=== PATIENT | female | born 1960 | race African-American/Black ===

== ENCOUNTER 2017-07-08 12:28 | Emergency (ER) | payer OTHER ==
--- NOTE | 2017-07-08 13:09 | ER Document Report ---
ED GI/ - General Chief Complaint: Urinary Problem Stated Complaint: PAINFUL URINATION Time Seen by Provider: 07/08/17 12:56 Mode of Arrival: Ambulatory Information source: Patient Notes: 56-year-old female presents to ED for urinary burning and frequency and pelvic pain for the last week. She states she thinks she has a UTI and a yeast infection. She states she is postmenopausal. She states she has spoken with her primary doctor and they are sending a referral for REGIONAL PRODUCTION MANAGER. TRAVEL OUTSIDE OF THE [place] IN LAST 30 DAYS: No - HPI Patient complains to provider of: Pelvic pain, Vaginal discharge, Vaginal pain, Other - Burning with urination Onset: Last week Timing/Duration: Persistent Quality of pain: Achy, Dull, Sharp Severity at maximum: Severe Severity in ED: Severe Pain Level: 5 Location: Suprapubic, Pelvis, Vaginal Vaginal bleeding (Compared to normal period): None Menstrual period history: Post-menopausal Associated symptoms: Urinary frequency, Urinary urgency, Vaginal discharge Exacerbated by: Movement, Walking, Other - Urination Relieved by: Denies Similar symptoms previously: Yes Recently seen / treated by doctor: Yes - Related Data Allergies/Adverse Reactions: nitroglycerin [Nitroglycerin] Allergy (Verified 07/08/17 12:28) low blood pressure Sulfa (Sulfonamide Antibiotics) Allergy (Verified 07/08/17 12:28) rash Past Medical History - General Information source: Patient - Social History Smoking Status: Former Smoker Cigarette use (# per day): No Chew tobacco use (# tins/day): No Smoking Education Provided: No Frequency of alcohol use: None Drug Abuse: None Occupation: None Lives with: Family Family History: Arthritis, CAD, DM, Hyperlipidemia, Hypertension, Malignancy. denies: COPD, CVA, Thyroid Disfunction Patient has suicidal ideation: No Patient has homicidal ideation: No - Past Medical History Cardiac Medical History: Reports: Hx Hypertension Pulmonary Medical History: Reports: None EENT Medical History: Reports: None Neurological Medical History: Reports: None Endocrine Medical History: Reports: Hx Diabetes Mellitus Type 2 Renal/ Medical History: Reports: None Malignancy Medical History: Reports: None GI Medical History: Reports: None Musculoskeltal Medical History: Reports Hx Arthritis, Reports Hx Musculoskeletal Trauma Skin Medical History: Reports None Psychiatric Medical History: Reports: None Traumatic Medical History: Reports: None Infectious Medical History: Reports: None Past Surgical History: Reports: Hx Cholecystectomy, Hx Orthopedic Surgery - right knee, Hx Tubal Ligation - Immunizations Hx Diphtheria, Pertussis, Tetanus Vaccination: Yes Review of Systems - Review of Systems Constitutional: No symptoms reported EENT: No symptoms reported Cardiovascular: No symptoms reported Respiratory: No symptoms reported Gastrointestinal: No symptoms reported Genitourinary: Burning, Frequency Female Genitourinary: Vaginal discharge, Other - Pelvic pain Musculoskeletal: No symptoms reported Skin: No symptoms reported Hematologic/Lymphatic: No symptoms reported Neurological/Psychological: No symptoms reported -: Yes All other systems reviewed and negative Physical Exam - Vital signs Vitals: Temp Pulse Resp BP Pulse Ox 98.2 F 76 18 151/67 H 98 07/08/17 12:37 07/08/17 12:37 07/08/17 12:37 07/08/17 12:37 07/08/17 12:37 Interpretation: Normal - General General appearance: Appears well, Alert - HEENT Head: Normocephalic, Atraumatic Eyes: Normal Pupils: PERRL - Respiratory Respiratory status: No respiratory distress Chest status: Nontender Breath sounds: Normal Chest palpation: Normal - Cardiovascular Rhythm: Regular Heart sounds: Normal auscultation Murmur: No - Abdominal Inspection: Normal Distension: No distension Bowel sounds: Normal Tenderness: Tender - Pelvic Organomegaly: No organomegaly - Genitourinary Speculum exam: Vaginal discharge Vaginal bleeding: None Bimanuel exam: Adnexal tenderness - Back Back: Normal, Nontender - Extremities General upper extremity: Normal inspection, Nontender, Normal color, Normal ROM , Normal temperature General lower extremity: Normal inspection, Nontender, Normal color, Normal ROM , Normal temperature, Normal weight bearing. No: Ann's sign - Neurological Neuro grossly intact: Yes Cognition: Normal Orientation: AAOx4 Rosa Coma Scale Eye Opening: Spontaneous [place] Coma Scale Verbal: Oriented Rosa Coma Scale Motor: Obeys Commands Rosa Coma Scale Total: 15 Speech: Normal Motor strength normal: LUE, RUE, LLE, RLE Sensory: Normal - Psychological Associated symptoms: Normal affect, Normal mood - Skin Skin Temperature: Warm Skin Moisture: Dry Skin Color: Normal Course - Re-evaluation Re-evalutation: 07/08/17 13:08 Urine wet mount GC and chlamydia and Doppler all ordered the patient's pelvic pain is been going on and off for over a week. Patient states she has been to her primary doctor and they have put in a referral for [employer] PRODUCTION MANAGER consult. 07/08/17 15:47 Lab results and ultrasound results discussed with patient. [facility] satellite installation technician notified. She states she is a low comes the patient will need to call the office on Monday or Monday if his office is not open on Monday. She states she was not sure whether was open or not. Will discharge patient home to follow-up with REGIONAL PRODUCTION MANAGER and I will give her a copy of the lab and ultrasound reports. - Vital Signs Vital signs: Temp Pulse Resp BP Pulse Ox 98.2 F 73 18 137/84 H 98 07/08/17 12:37 07/08/17 16:03 07/08/17 16:03 07/08/17 16:03 07/08/17 16:03 - Laboratory Laboratory results interpreted by me: 07/08/17 13:03 Urine Protein 30 H Urine Glucose (UA) 50 H Urine Blood MODERATE H - Diagnostic Test Radiology reviewed: Image reviewed, Reports reviewed Discharge - Discharge Clinical Impression: Pelvic pain in female, Bacterial vaginitis, Endometrial thickening on ultra sound Fibroid uterus Qualifiers: Uterine leiomyoma location: unspecified location Qualified Code(s): D25.9 - Leiomyoma of uterus, unspecified HTN (hypertension) Qualifiers: Hypertension type: unspecified Qualified Code(s): I10 - Essential (primary) hypertension Condition: Stable Disposition: HOME, SELF-CARE Additional Instructions: PELVIC PAIN: There are many causes of pain in the pelvic area. The cause could be the tubes, ovaries, uterus, intestines, appendix, pelvic muscles and connective tissue, or the urinary tract. The cause of your pelvic pain is not clear. However, it seems safe to treat you outside the hospital. If the pain sounds like a temporary problem, we sometimes wait to see if it goes away. Other patients may need additional tests, such as pelvic ultrasound or cultures. Conditions may change. Call us or come back for reexamination if any problems occur, such as: (1) Pain that becomes more severe, steady, or becomes concentrated in one specific area. Also, pain that is more severe with movement or coughing. (2) Vomiting that persists or becomes more frequent. (3) Blood in the vomitus, urine, or bowel movements. Blood in the stool may have a tarry or black appearance. (4) Shaking chills or fever greater than 100 degrees. (5) The abdomen becomes more distended or swollen. (6) Bowel movements cease. (7) Heavy vaginal bleeding. Vaginosis, Bacterial Your exam shows you have bacterial vaginosis. This condition is due to an overgrowth of bacteria in the vagina. Symptoms may include vaginal itching or pain, a smelly discharge, and sometimes burning with urination. Normally this is not transmitted by sexual contact. Vaginosis can be treated with oral or topical antibiotics. Metronidazole ( Flagyl) pills are usually effective. Topical vaginal creams include Cleocin and Metro-Gel. You should avoid sexual contact until your symptoms are all better. Call the doctor if you develop pelvic pain, fever, or problems with urination, or if you don't improve as expected. METRONIDAZOLE: Metronidazole (Flagyl) has been prescribed. This medication is used to kill a type of bacteria called anaerobes, and protozoan parasites such as trichomonas and Giardia. Flagyl often causes a metallic taste in the mouth and mild nausea. Do not use alcohol in any form with Flagyl (including alcohol in medication elixirs). Flagyl interacts with alcohol to cause flushing, palpitations, headache, stomach cramps, and vomiting. Do not use Flagyl if you are taking Antabuse (disulfiram). Call the doctor at once if you develop rash, shortness of breath, itching, or lightheadedness. ORAL NARCOTIC MEDICATION: You have been given a [place] dispense pack for pain control. This medication is a narcotic. It's best taken with food, as nausea can result if taken on an empty stomach. Don't operate machinery or drive within six hours of taking this medication. Do not combine this medicine with alcohol, or with any medication which can cause sedation (such as cold tablets or sleeping pills) unless you get permission from the physician. Narcotics tend to cause constipation. If possible, drink plenty of fluids and eat a diet high in fiber and fruits. Please be aware that prescription narcotics also have the potential for abuse. People become addicted to these medications because of the general sense of wellbeing that they induce. This feeling along with a significant reduction in tension, anxiety, and aggression provides a stimulating seductive quality to these drugs. Once your pain is under control, we encourage you to discard your unused narcotics. FOLLOW-UP CARE: If you have been referred to a physician for follow-up care, call the physician s office for an appointment as you were instructed or within the next two days. If you experience worsening or a significant change in your symptoms, notify the physician immediately or return to the Emergency Department at any time for re-evaluation. Prescriptions: Metronidazole [Flagyl 500 mg Tablet] 500 mg PO BID #14 tablet Forms: Elevated Blood Pressure Referrals: TATI JEONG MD [Primary Care Provider] - Follow up as needed [facility] [Provider Group] - Follow up as needed
[2017-07-08 13:20] LABS: BACTERIA (WET MOUNT) 3+ BACTERIA SEEN; EPITHELIALS (WET MOUNT) 3+ EPITHELIALS SEEN; RBCS (WET MOUNT) NO RBCS SEEN; T.VAGINALIS (WET MOUNT) NO TRICHOMONAS SEEN; WBCS (WET MOUNT) 1+ WBCS SEEN; YEAST (WET MOUNT) NO YEAST SEEN
[2017-07-08 13:30] LABS: APPEARANCE,URINE SLIGHTLY-CLOUDY; BILIRUBIN,URINE NEGATIVE (NEGATIVE); COLOR,URINE YELLOW; GLUCOSE, URINE 50 mg/dL (NEGATIVE); KETONES,URINE NEGATIVE (NEGATIVE); LEUKOCYTE ESTERASE,URINE NEGATIVE (NEGATIVE); NITRITE,URINE NEGATIVE (NEGATIVE); PROTEIN,URINE 30 mg/dL (NEGATIVE); URINE SPECIFIC GRAVITY 1.023; UROBILINOGEN,URINE NEGATIVE mg/dL (<2.0)
[2017-07-08 14:51] LABS: CHLAM PCR NOT DETECTED (NOT DETECT); GON PCR NOT DETECTED (NOT DETECT)
--- NOTE | 2017-07-08 15:23 | RADIOLOGY REPORT (SQ) ---
EXAM DESCRIPTION: U/S NON OB PEL TV W/DOPPLER COMPLETED DATE/TIME: 07/08/2017 2:39 pm REASON FOR STUDY: Postmenopausal pelvic pain COMPARISON: None. TECHNIQUE: Dynamic and static grayscale images acquired of the pelvis via transvaginal approach and recorded on PACS. Additional selected color Doppler images recorded. LIMITATIONS: Overlying bowel gas. FINDINGS: UTERUS: Measures 10.2 x 5.4 x 5.0 cm. Heterogeneous areas at the myometrium are suggestiv e of fibroids, the largest measuring 2.0 x 2.4 x 2.3 cm. ENDOMETRIAL STRIPE: The endometrium has ill defined borders, measuring approximately 6 mm in double w all thickness. CERVIX: Nabothian cysts noted. RIGHT OVARY: Ovary not visualized. LEFT OVARY: Ovary not visualized. FREE FLUID: None noted. IMPRESSION: 1. Enlarged fibroid uterus. 2. Mildly thickened ill-defined endometrium, may be due to endometrial hyperplasia versus neoplasm. Correlation with endometrial biopsy and MRI pelvis recommended. 3. Nonvisualized ovaries. TECHNICAL DOCUMENTATION: JOB ID: [id number]- All Rights Reserved
[2017-07-08] MEDS ORDERED: METRONIDAZOLE 500 MG TABLET PO ONE (15:50)
[2017-07-08] MEDS ORDERED: HYDROCODONE/ACETAMINOPHEN 5-325 MG (6 TAB/ER DISP) PO PRN (15:50)
[2017-07-08 16:05] VITALS: BP 137/84
== END 2017-07-08 16:07 | disposition home or self-care (01) ==
LOC: ER 12:28
DX: N76.0 Acute vaginitis (principal); B96.89 Other specified bacterial agents as the cause of diseases classified elsewhere; R93.8 Abnormal findings on diagnostic imaging of other specified body structures; D25.9 Leiomyoma of uterus, unspecified; R10.2 Pelvic and perineal pain; R30.0 Dysuria; I10 Essential (primary) hypertension; Z88.2 Allergy status to sulfonamides; Z87.891 Personal history of nicotine dependence
CPT/HCPCS: 76830; 81001; 87210; 87491; 87591; 93976; 99284

== ENCOUNTER → 2017-08-08 | Outpatient (CLI) | payer OTHER ==
--- NOTE | 2017-08-08 16:24 | RADIOLOGY REPORT (SQ) ---
EXAM DESCRIPTION: MRI HEAD COMBO COMPLETED DATE/TIME: 08/08/2017 4:01 pm REASON FOR STUDY: LEFT EAR PAIN H92.22 OTORRHAGIA, LEFT EAR COMPARISON: None. TECHNIQUE: Multiplanar imaging includes non-contrasted T1, T2, FLAIR, diffusion with ADC map and pos t gadolinium contrast sequences. Additional thin slice images with and without gadolinium contrast a cquired in the posterior fossa. Images stored on PACS. CONTRAST TYPE AND DOSE: 15 mL Multihance. RENAL FUNCTION: GFR > 60. LIMITATIONS: None. FINDINGS: ANATOMY: No anomalies. Normal vascular flow voids. Pituitary fossa normal. CSF SPACES: Normal in size and contour. CEREBRUM: Sulci and gyri normal in size and contour. Normal white matter signal on FLAIR imaging. N o hemorrhage. No edema, masses or mass effect. No enhancing lesions. POSTERIOR FOSSA: No signal alteration. No hemorrhage. No edema, masses or mass effect. Internal sara tory canals, cerebello-pontine angles, mastoids normal. No enhancing lesions. Detailed imaging of the 5th, 7th, and 8th nerves and [place] within normal limits. DIFFUSION IMAGING: Negative for acute or sub-acute infarction. ORBITS: No masses. Globes normal. PARANASAL SINUSES: No fluid levels. Mucosa normal. OTHER: No other significant finding. IMPRESSION: NORMAL MRI OF THE BRAIN AND POSTERIOR FOSSA WITHOUT AND WITH INTRAVENOUS GADOLINIUM CONT RAST. TECHNICAL DOCUMENTATION: JOB ID: [id number]- All Rights Reserved
== END ==
LOC: RAD 14:33
PROVIDERS: ATTEND Internal Medicine
DX: H92.22 Otorrhagia, left ear (principal)
CPT/HCPCS: 82565; 70553; A9577

== ENCOUNTER 2018-04-17 17:03 | Emergency (ER) | payer OTHER ==
[2018-04-17] MEDS ORDERED: NORMAL SALINE 1000 ML 1,000 ML IV ONE (18:58)
[2018-04-17 19:38] LABS: ABSOLUTE BASOPHILS # (AUTO) 0.2 10^3/uL (0.0-0.2); ABSOLUTE EOSINOPHILS # (AUTO) 0.1 10^3/uL (0.0-0.6); ABSOLUTE LYMPHOCYTES (AUTO) 2.9 10^3/uL (0.5-4.7); ABSOLUTE MONOCYTES (AUTO) 0.6 10^3/uL (0.1-1.4); ABSOLUTE NEUT (AUTO) 5.9 10^3/uL (1.7-8.2); BASOPHILS % (AUTO) 1.7 % (0-2); EOSINOPHILS % (AUTO) 0.7 % (0-6); HEMATOCRIT 42.9 % (36.0-47.0); HEMOGLOBIN 14.5 g/dL (12.0-15.5); LYMPHOCYTES % (AUTO) 30.4 % (13-45); MEAN CORPUSCULAR HEMOGLOBIN 27.8 pg (27.0-33.4); MEAN CORPUSCULAR HGB CONC 33.7 g/dL (32.0-36.0); MEAN CORPUSCULAR VOLUME 82 fl (80-97); MONOCYTES % (AUTO) 5.7 % (3-13); PLATELET COUNT 302 10^3/uL (150-450); RED CELL DISTRIBUTION WIDTH 14.1 % (11.5-14.0); SEGMENTED NEUTROPHILS % (AUTO) 61.5 % (42-78); TOTAL CELLS COUNTED % (AUTO) 100 %; WHITE BLOOD COUNT 9.7 10^3/uL (4.0-10.5)
[2018-04-17 20:44] LABS: ALANINE AMINOTRANSFERASE 17 U/L (9-52); ALBUMIN 4.1 g/dL (3.5-5.0); ALKALINE PHOSPHATASE 59 U/L (38-126); ANION GAP 9 (5-19); ASPARTATE AMINO TRANSFERASE 15 U/L (14-36); BILIRUBIN,DIRECT 0.2 mg/dL (0.0-0.4); BILIRUBIN,TOTAL 0.6 mg/dL (0.2-1.3); BLOOD UREA NITROGEN 15 mg/dL (7-20); CALCIUM 9.7 mg/dL (8.4-10.2); CARBON DIOXIDE 29 mmol/L (22-30); CHLORIDE 101 mmol/L (98-107); GLUCOSE 242 mg/dL (75-110); SODIUM 139.1 mmol/L (137-145); TOTAL PROTEIN 7.2 g/dL (6.3-8.2)
--- NOTE | 2018-04-17 20:52 | ER Document Report ---
ED General - General Chief Complaint: Abnormal Lab Results Stated Complaint: ABNORMAL TEST RESULTS Time Seen by Provider: 04/17/18 18:55 Mode of Arrival: Ambulatory Information source: Patient TRAVEL OUTSIDE OF THE [place] IN LAST 30 DAYS: No - HPI Patient complains to provider of: high glucose Onset: Other - This a 57-year-old female presents for evaluation of hyperglycemia. She has been seen previously by Dr. Jeong for this in the past and was initially treated on different regimen but has been transitioned to metformin at 500 daily as well as Januvia 110 and Jardiance 25, she is continued to have elevated blood glucoses and today was checked at which time her blood glucose was nearly 500 she was referred to the emergency room for further evaluation. She otherwise has been doing okay. She is able to tolerate her medications normally denies any recent illnesses and denies any fevers or chills lightheadedness chest pain shortness of breath or other symptoms. She does endorse some increased urinary frequency. - Related Data Allergies/Adverse Reactions: nitroglycerin [Nitroglycerin] Allergy (Verified 04/17/18 17:04) low blood pressure Sulfa (Sulfonamide Antibiotics) Allergy (Verified 04/17/18 17:04) rash Past Medical History - General Information source: Patient - Social History Smoking Status: Unknown if Ever Smoked Family History: Arthritis, CAD, DM, Hyperlipidemia, Hypertension, Malignancy. denies: COPD, CVA, Thyroid Disfunction Patient has suicidal ideation: No Patient has homicidal ideation: No - Past Medical History Cardiac Medical History: Reports: Hx Hypertension Pulmonary Medical History: Reports: Hx Asthma Endocrine Medical History: Reports: Hx Diabetes Mellitus Type 2 Renal/ Medical History: Denies: Hx Peritoneal Dialysis Musculoskeletal Medical History: Reports Hx Arthritis, Reports Hx Musculoskeletal Trauma Past Surgical History: Reports: Hx Cholecystectomy, Hx Gynecologic Surgery - tubes tied, Hx Orthopedic Surgery - right knee, Hx Tubal Ligation - Immunizations Hx Diphtheria, Pertussis, Tetanus Vaccination: Yes Review of Systems - Review of Systems -: Yes All other systems reviewed and negative Physical Exam - Vital signs Vitals: Temp Pulse Resp BP Pulse Ox 98.6 F 128 H 14 128/79 H 97 04/17/18 17:05 04/17/18 17:05 04/17/18 17:05 04/17/18 17:05 04/17/18 17:05 - General General appearance: Appears well In distress: None - HEENT Head: Normocephalic Eyes: Normal Conjunctiva: Normal Cornea: Normal Extraocular movements intact: Yes Eyelashes: Normal Pupils: PERRL - Respiratory Respiratory status: No respiratory distress Chest status: Nontender Breath sounds: Normal Chest palpation: Normal - Cardiovascular Rhythm: Tachycardia Heart sounds: Normal auscultation Murmur: No - Abdominal Inspection: Normal Distension: No distension Tenderness: Nontender - Back Back: Normal - Extremities General upper extremity: Normal inspection, Nontender, Normal strength, Normal temperature General lower extremity: Normal inspection, Nontender, Normal strength, Normal temperature - Neurological Neuro grossly intact: Yes Cognition: Normal Orientation: AAOx4 [place] Coma Scale Eye Opening: Spontaneous [place] Coma Scale Verbal: Oriented [place] Coma Scale Motor: Obeys Commands [place] Coma Scale Total: 15 Speech: Normal Cranial nerves: Normal Motor strength normal: LUE, RUE, LLE, RLE - Psychological Associated symptoms: Normal affect Course - Re-evaluation Re-evalutation: 04/18/18 01:36 57-year-old female with type 2 diabetes a presents for evaluation of elevated blood sugar. On examination this patient is well-appearing and has no other symptoms at this time save an elevated blood glucose to 400. We will obtain a chemistry and administer fluids. Following chemistry patient is noted to have a decreasing blood glucose with simple administration of IV fluids. She is on a relatively low dose of metformin at this time, as such we will increase her dose to more appropriate level of a gram in the morning as well as 500 at night. She will be encouraged follow-up with her primary physician and return in case of any worsening she is in agreement with this plan at this time. She has no other questions or concerns. At the time of discharge she was hemodynamically stable well-appearing and had no other complaints. - Vital Signs Vital signs: Temp Pulse Resp BP Pulse Ox 99.0 F 75 15 153/75 H 97 04/17/18 21:05 04/17/18 21:05 04/17/18 21:05 04/17/18 21:05 04/17/18 17:10 - Laboratory Result Diagrams: 04/17/18 19:28 04/17/18 20:22 Laboratory results interpreted by me: 04/17/18 04/17/18 04/17/18 18:07 19:28 20:22 RDW 14.1 H Glucose 242 H POC Glucose 379 H Discharge - Discharge Clinical Impression: Hyperglycemia Condition: Good Disposition: HOME, SELF-CARE Instructions: Glucophage (OM) Additional Instructions: Your seen today in the emergency department for your high blood sugar. You had tests of your blood as well as a physical exam. You should increase your dose for your Metformin, currently take 500 mg in the morning, you should take 1000 mg in the morning and 500 at night. You should follow-up with Dr. Carroll in the coming week for ongoing management. Return for worsening abdominal pain, if you begin to throw up, have fevers or chills or other symptoms. Prescriptions: Metformin HCl See Protocol PO BID #50 tablet Referrals: TATI JEONG MD [Primary Care Provider] - Follow up as needed
[2018-04-17 21:10] VITALS: BP 153/75
== END 2018-04-17 21:09 | disposition home or self-care (01) ==
LOC: ER 17:03
DX: E11.65 Type 2 diabetes mellitus with hyperglycemia (principal); Z79.4 Long term (current) use of insulin; Z79.84 Long term (current) use of oral hypoglycemic drugs; R35.0 Frequency of micturition; I10 Essential (primary) hypertension; J45.909 Unspecified asthma, uncomplicated; Z88.2 Allergy status to sulfonamides; Z88.8 Allergy status to other drugs, medicaments and biological substances
CPT/HCPCS: 99283; 96360; 36415; 82962; 85025; 80053; J7030

== ENCOUNTER → 2018-05-02 | Outpatient (CLI) | payer OTHER ==
--- NOTE | 2018-05-02 14:36 | WOMENS IMAGING REPORT ---
EXAM DESCRIPTION: BILAT SCREENING MAMMO W/CAD COMPLETED DATE/TIME: 05/02/2018 10:18 am REASON FOR STUDY: BILATERAL SCREENING MAMMO /Z12.31 Z12.31 ENCNTR SCREEN MAMMOGRAM FOR MALIGNANT N EOPLASM OF [place] COMPARISON: [id number] TECHNIQUE: Standard craniocaudal and mediolateral oblique views of each breast recorded using Wireless Safety[employer] l acquisition. LIMITATIONS: None. FINDINGS: No masses, calcifications or architectural distortion. No areas of suspicion. Read with the assistance of CAD. .[facility] - R2 Cenova Version 1.3 .[facility] Imaging - R2 Cenova Version 1.3 .[facility] - R2 Cenova Version 2.4 .[facility] - R2 Cenova Version 2.4 .[facility] - R2 Perinatology Physician Version 9.2 IMPRESSION: NORMAL MAMMOGRAM. BIRADS 1. BREAST DENSITY: b. There are scattered areas of fibroglandular density. BIRAD: 1 NEGATIVE RECOMMENDATION: ROUTINE SCREENING COMMENT: The patient has been notified of the results by letter per MQSA requirements. Additional no tification policies are in place for contacting patient with suspicious or incomplete findings. Quality ID #[id number]: The [employer] recommends an annual screening mammogram for women aged 40 years or over. This facility utilizes a reminder system to ensure that all patients receive reminder letters, and/or direct phone calls for appointments. This includes reminders for routine scr eening mammograms, diagnostic mammograms, or other Breast Imaging Interventions when appropriate. Th is patient will be placed in the appropriate reminder system. The [employer] (ACR) has developed recommendations for screening MRI of the breast s in certain patient populations, to be used in conjunction with mammography. Breast MRI surveillanc e may be appropriate for women with more than 20% lifetime risk of developing breast cancer as deter mined by genetic testing, significant family history of the disease, or history of mantle radiation f or Hodgkins Disease. ACR Practice Guidelines 2008. TECHNICAL DOCUMENTATION: FINDING NUMBER: (1) ASSESSMENT: (1) JOB ID: [id number] [employer]- All Rights Reserved Reading location - IP/workstation name: [email or web address]
== END ==
LOC: WI 09:35
PROVIDERS: ATTEND Internal Medicine
DX: Z12.31 Encounter for screening mammogram for malignant neoplasm of breast (principal)
CPT/HCPCS: 77067

== ENCOUNTER 2019-03-08 15:12 | Emergency (ER) | payer OTHER ==
[2019-03-08 15:46] VITALS: BP 122/72
[2019-03-08] MEDS ORDERED: HYDROCODONE/ACETAMINOPHEN 5-325 MG TABLET PO ONE (16:02)
--- NOTE | 2019-03-08 16:06 | ER Document Report ---
HPI - HPI Patient complains to provider of: left hip pain Time Seen by Provider: 03/08/19 15:57 Onset: This morning Onset/Duration: Gradual Quality of pain: Sharp Pain Level: 2 Context: Pt presents complaining of left hip pain that started today. Patient denies any injury. Patient states that she is getting scheduled to have left knee surgery. Patient states that she developed left hip pain today that is causing her not to be able to put weight to the leg due to pain symptoms. Patient denies any fever urinary retention or incontinence. Patient does have some low back pain as well. Associated Symptoms: denies: Fever Exacerbated by: Standing, Movement, Walking Relieved by: Denies Similar symptoms previously: No Recently seen / treated by doctor: No - ROS ROS below otherwise negative: Yes Systems Reviewed and Negative: Yes All other systems reviewed and negative - CONSTITUTIONAL Constitutional: DENIES: Fever, Chills - NEURO Neurology: DENIES: Weakness - GASTROINTESTINAL Gastrointestinal: DENIES: Nausea - URINARY Urinary: DENIES: Dysuria, Urgency, Frequency - REPRODUCTIVE Reproductive: DENIES: : - MUSCULOSKELETAL Musculoskeletal: REPORTS: Extremity pain - Left hip, Back Pain - DERM Skin Color: Normal Skin Problems: None Past Medical History - General Information source: Patient - Social History Smoking Status: Never Smoker Frequency of alcohol use: None Drug Abuse: None Occupation: none Lives with: Spouse/Significant other Family History: Arthritis, CAD, DM, Hyperlipidemia, Hypertension, Malignancy - Past Medical History Cardiac Medical History: Reports: Hx Hypertension Pulmonary Medical History: Reports: Hx Asthma Endocrine Medical History: Reports: Hx Diabetes Mellitus Type 2 Renal/ Medical History: Denies: Hx Peritoneal Dialysis Musculoskeletal Medical History: Reports Hx Arthritis, Reports Hx Musculoskeletal Trauma Past Surgical History: Reports: Hx Cholecystectomy, Hx Gynecologic Surgery - tubes tied, Hx Orthopedic Surgery - right knee, Hx Tubal Ligation - Immunizations Hx Diphtheria, Pertussis, Tetanus Vaccination: Yes Vertical Provider Document - CONSTITUTIONAL Agree With Documented VS: Yes Exam Limitations: No Limitations General Appearance: WD/WN, No Apparent Distress - INFECTION CONTROL TRAVEL OUTSIDE OF THE [place] IN LAST 30 DAYS: No - HEENT HEENT: Atraumatic, Normocephalic - NECK Neck: Normal Inspection, Supple - RESPIRATORY Respiratory: Breath Sounds Normal, No Respiratory Distress - CARDIOVASCULAR Cardiovascular: Regular Rate, Regular Rhythm - BACK Back: Abnormal Inspection - Left lower lumbar paraspinal tenderness. negative: CVA Tenderness-Right, CVA Tenderness-Left - MUSCULOSKELETAL/EXTREMETIES Musculoskeletal/Extremeties: MAEW, Tender - Tenderness to posterior aspect of left hip joint, tenderness increases with flexion and weightbearing. - NEURO Level of Consciousness: Awake, Alert, Appropriate Motor/Sensory: No Motor Deficit, No Sensory Deficit Notes: no saddle anesthesia, no foot drop - DERM Integumentary: Warm, Dry Course - Re-evaluation Re-evalutation: 03/08/19 17:12 Patient presents with left posterior hip pain and low back pain. Suspect patient with sciatica symptoms at this time. No saddle anesthesia, no urinary retention symptoms. Patient does have some facet arthropathy on x-ray. Patient encouraged to follow-up with orthopedics for further evaluation of her back and hip pain. The patient presents with low back pain without signs of spinal cord compression, cauda equina syndrome, infection, aneurysm, or other serious etiology. The patient is neurologically intact. Given the extremely risk of these diagnoses further testing and evaluation for these possibilities does not appear to be indicated at this time. Patient has been instructed to return if the symptoms worsen or change in any way. - Vital Signs Vital signs: Temp Pulse Resp BP Pulse Ox 98.6 F 69 16 122/72 96 03/08/19 15:44 03/08/19 15:44 03/08/19 15:44 03/08/19 15:44 03/08/19 15:44 - Diagnostic Test Radiology reviewed: Image reviewed, Reports reviewed Discharge - Discharge Clinical Impression: Left hip pain Low back pain Qualifiers: Chronicity: unspecified Back pain laterality: left Sciatica presence: with scia jonny Sciatica laterality: sciatica of left side Qualified Code(s): M54.42 - Lumbago with sciatica, left side Condition: Stable Disposition: HOME, SELF-CARE Instructions: Low Back Pain ([facility]), Oral Narcotic Medication ([facility]), Sciatica ([facility]), Steroid Medication Additional Instructions: Return immediately for any new or worsening symptoms Followup with your primary care provider, call tomorrow to make a followup appointment Prescriptions: Prednisone [Deltasone 20 mg Tablet] 3 tab PO DAILY 5 Days tablet Lidocaine [Lidoderm 5% (700 mg) Transdermal Patch] 1 patch TP DAILY PRN #10 adh..patch PRN Reason: Hydrocodone/Acetaminophen [[place] 5-325 mg Tablet] 1 tab PO Q6 PRN #15 tablet PRN Reason: Referrals: TATI JEONG MD [Primary Care Provider] - Follow up as needed
--- NOTE | 2019-03-08 16:48 | RADIOLOGY REPORT (SQ) ---
EXAM DESCRIPTION: HIP LEFT AP/LATERAL COMPLETED DATE/TIME: 03/08/2019 4:39 pm REASON FOR STUDY: L hip, low back pain COMPARISON: None. NUMBER OF VIEWS: Two views. TECHNIQUE: AP pelvis and additional frog-leg view of the left hip. LIMITATIONS: None. FINDINGS: MINERALIZATION: Normal. LEFT HIP: No fracture or dislocation. No worrisome bone lesions. RIGHT HIP: No fracture or dislocation. No worrisome bone lesions. PUBIS AND ISCHIUM: No fracture. PELVIS: No fracture. SACRUM: No fracture or dislocation. No worrisome bone lesions. LOWER LUMBAR SPINE: No fracture or dislocation. No worrisome bone lesions. No significant disc disea se. SOFT TISSUES: No findings. OTHER: No other significant finding. IMPRESSION: NEGATIVE STUDY OF THE LEFT HIP AND PELVIS. NO RADIOGRAPHIC EVIDENCE OF ACUTE INJURY. TECHNICAL DOCUMENTATION: JOB ID: [id number] [employer]- All Rights Reserved Reading location - IP/workstation name: [email or web address]
--- NOTE | 2019-03-08 16:51 | RADIOLOGY REPORT (SQ) ---
EXAM DESCRIPTION: L SPINE WHOLE COMPLETED DATE/TIME: 03/08/2019 4:39 pm REASON FOR STUDY: L hip, low back pain COMPARISON: None. NUMBER OF VIEWS: Five views including obliques. TECHNIQUE: AP, lateral, oblique, and sacral radiographic images acquired of the lumbar spine. LIMITATIONS: None. FINDINGS: MINERALIZATION: Normal. SEGMENTATION: There are 5 lumbar-type vertebral bodies. There is no transitional anatomy at the lumb osacral junction. ALIGNMENT: Normal. VERTEBRAE: The lumbar vertebral body heights are preserved. There is no fracture. DISCS: The intervertebral disc spaces are preserved. POSTERIOR ELEMENTS: Intact. The L4-5 and L5-S1 facet joints are sclerotic. There is no pars interar ticularis defect. HARDWARE: None in the spine. PARASPINAL SOFT TISSUES: Normal. PELVIS: Intact. OTHER: No other finding. IMPRESSION: No acute fracture or malalignment of the lumbar spine. TECHNICAL DOCUMENTATION: JOB ID: [id number] [employer]- All Rights Reserved Reading location - IP/workstation name: [email or web address]
[2019-03-08] MEDS ORDERED: LIDOCAINE 5% (700 MG) TRANSDERMAL ADH..PATCH TP ONE (16:57)
== END 2019-03-08 17:21 | disposition home or self-care (01) ==
LOC: ER 15:12
DX: M54.42 Lumbago with sciatica, left side (principal); M25.552 Pain in left hip; M12.9 Arthropathy, unspecified; I10 Essential (primary) hypertension; J45.909 Unspecified asthma, uncomplicated; E11.9 Type 2 diabetes mellitus without complications
CPT/HCPCS: 72110; 99283

== ENCOUNTER 2019-04-19 20:35 | Emergency (ER) | payer OTHER ==
--- NOTE | 2019-04-19 20:56 | ER Document Report ---
ED Medical Screen (RME) - General Stated Complaint: KNEE PAIN Time Seen by Provider: 04/19/19 20:47 Primary Care Provider: TATI JEONG MD [Primary Care Provider] - Follow up as needed Notes: 58-year-old female presents the emergency department with acute knee pain. She is postop day #4 status post knee replacement of the left knee. Patient states that the pain has been severe the entire time. Patient has been taking the prescribed narcotic pain medications from the surgeon as directed and said that the pain is still unbearable. Patient states that the pain goes from the bottom of her foot all the way up to her thigh. Patient performed a dressing change earlier today and said that the site looks good there is no purulent drainage. No redness or warmth at the site. Patient states that she felt fever and chills earlier today. Temperature here 99.3. Exam: Well-appearing in mild distress, patient wearing a stocking stocking over her left leg and her surgical site is dressed and covered. The dressing was taken down and the longitudinal incision is intact there is no dehiscence, there is an area of erythema but the site is not hot to touch. no purulent discharge I have greeted and performed a rapid initial assessment of this patient. A comprehensive ED assessment and evaluation of the patient, analysis of test results and completion of medical decision making process will be conducted by an additional ED providers. TRAVEL OUTSIDE OF THE [place] IN LAST 30 DAYS: No - Related Data Allergies/Adverse Reactions: nitroglycerin [Nitroglycerin] Allergy (Verified 03/08/19 15:13) low blood pressure Sulfa (Sulfonamide Antibiotics) Allergy (Verified 03/08/19 15:13) rash Past Medical History - Past Medical History Cardiac Medical History: Reports: Hx Hypertension Pulmonary Medical History: Reports: Hx Asthma Endocrine Medical History: Reports: Hx Diabetes Mellitus Type 2 Renal/ Medical History: Denies: Hx Peritoneal Dialysis Musculoskeltal Medical History: Reports Hx Arthritis, Reports Hx Musculoskeletal Trauma Past Surgical History: Reports: Hx Cholecystectomy, Hx Gynecologic Surgery - tubes tied, Hx Orthopedic Surgery - right knee, Hx Tubal Ligation - Immunizations Hx Diphtheria, Pertussis, Tetanus Vaccination: Yes Doctor's Discharge - Discharge Referrals: TATI JEONG MD [Primary Care Provider] - Follow up as needed
[2019-04-19 21:47] LABS: ABSOLUTE BASOPHILS # (AUTO) 0.1 10^3/uL (0.0-0.2); ABSOLUTE LYMPHOCYTES (AUTO) 2.3 10^3/uL (0.5-4.7); ABSOLUTE MONOCYTES (AUTO) 1.1 10^3/uL (0.1-1.4); ABSOLUTE NEUT (AUTO) 7.3 10^3/uL (1.7-8.2); BASOPHILS % (AUTO) 0.9 % (0-2); EOSINOPHILS % (AUTO) 0.4 % (0-6); HEMATOCRIT 36.5 % (36.0-47.0); LYMPHOCYTES % (AUTO) 21.5 % (13-45); MEAN CORPUSCULAR HEMOGLOBIN 27.4 pg (27.0-33.4); MEAN CORPUSCULAR HGB CONC 32.9 g/dL (32.0-36.0); MEAN CORPUSCULAR VOLUME 83 fl (80-97); PLATELET COUNT 364 10^3/uL (150-450); RED CELL DISTRIBUTION WIDTH 14.5 % (11.5-14.0); SEGMENTED NEUTROPHILS % (AUTO) 67.2 % (42-78); TOTAL CELLS COUNTED % (AUTO) 100 %; WHITE BLOOD COUNT 10.9 10^3/uL (4.0-10.5)
[2019-04-19 21:56] LABS: ALBUMIN 3.8 g/dL (3.5-5.0); ALKALINE PHOSPHATASE 114 U/L (38-126); ANION GAP 11 (5-19); ASPARTATE AMINO TRANSFERASE 26 U/L (14-36); BILIRUBIN,DIRECT 0.2 mg/dL (0.0-0.4); BILIRUBIN,TOTAL 0.6 mg/dL (0.2-1.3); BLOOD UREA NITROGEN 10 mg/dL (7-20); CALCIUM 9.2 mg/dL (8.4-10.2); CARBON DIOXIDE 30 mmol/L (22-30); CHLORIDE 100 mmol/L (98-107); GLUCOSE 135 mg/dL (75-110); POTASSIUM 3.9 mmol/L (3.6-5.0)
[2019-04-19] MEDS ORDERED: HYDROMORPHONE HCL INJ/PF 2 MG/ML AMPULE IV ONE (22:30)
--- NOTE | 2019-04-19 22:35 | ER Document Report ---
ED General - General Chief Complaint: Post Surgical Pain Stated Complaint: KNEE PAIN Time Seen by Provider: 04/19/19 20:47 Primary Care Provider: TATI JEONG MD [Primary Care Provider] - Follow up as needed Notes: 8-year-old lady postop day 5 after left total knee presents with worsening knee pain redness inability to bear weight and range the knee. Worsening. No fever chills. Positive diabetes. This was done at [facility]. She says that there was bruising but is now getting red proximal to the bruise on the inner leg and her incision is red. No drainage. No definite fevers. TRAVEL OUTSIDE OF THE [place] IN LAST 30 DAYS: No - Related Data Allergies/Adverse Reactions: nitroglycerin [Nitroglycerin] Allergy (Verified 03/08/19 15:13) low blood pressure Sulfa (Sulfonamide Antibiotics) Allergy (Verified 03/08/19 15:13) rash Past Medical History - Social History Smoking Status: Never Smoker Family History: Arthritis, CAD, DM, Hyperlipidemia, Hypertension, Malignancy Patient has suicidal ideation: No Patient has homicidal ideation: No - Past Medical History Cardiac Medical History: Reports: Hx Hypertension Pulmonary Medical History: Reports: Hx Asthma Endocrine Medical History: Reports: Hx Diabetes Mellitus Type 2 Renal/ Medical History: Denies: Hx Peritoneal Dialysis Musculoskeletal Medical History: Reports Hx Arthritis, Reports Hx Mu sculoskeletal Trauma Past Surgical History: Reports: Hx Cholecystectomy, Hx Gynecologic Surgery - tubes tied, Hx Orthopedic Surgery - right knee, Hx Tubal Ligation - Immunizations Hx Diphtheria, Pertussis, Tetanus Vaccination: Yes Review of Systems - Review of Systems Notes: REVIEW OF SYSTEMS GEN: Denies fever, chills, weight loss ENT: Denies sore throat, nasal discharge, ear pain EYES: Denies blurry vision, eye pain, discharge CV: Denies chest pain, palpitations, edema RESP: Denies cough, shortness of breath, wheezing GI: Denies abdominal pain, nausea, vomiting, diarrhea MSK: HPI SKIN: Denies rash, skin lesions LYMPH: Denies swollen glands/lymph nodes NEURO: Denies headache, focal weakness or numbness, dizziness PSYCH: Denies depression, suicidal or homicidal ideation PHYSICAL EXAMINATION General: No acute distress, well-nourished Head: Atraumatic, normocephalic ENT: Mouth normal, oropharynx moist, no exudates or tonsillar enlargement Eyes: Conjunctiva normal, pupils equal, lids normal Neck: No JVD, supple, no guarding CVS: Normal rate, regular rhythm, no murmurs Resp: No resp distress, equal and normal breath sounds bilaterally GI: Nondistended, soft, no tenderness to palpation, no rebound or guarding Ext: Swelling and effusion of the left knee more than would be expected for postoperative pain. Erythema surrounding the inferior most aspect of the incision. Pain on axial loading pain on active motion with restricted range of motion streaking up and left medial flap Back: No CVA or midline TTP Skin: No rash, warm Lymphatic: No lymphadeopathy noted Neuro: Awake, alert. Face symmetric. GCS 15. Physical Exam - Vital signs Vitals: Temp Pulse Resp BP Pulse Ox 99.3 F 102 H 18 141/81 H 96 04/19/19 20:50 04/19/19 20:50 04/19/19 20:50 04/19/19 20:50 04/19/19 20:50 Course - Re-evaluation Re-evalutation: 04/19/19 23:25 Knee pain redness swelling with pain on axial loading decreased range of motion and large effusion concerning for wound infection plus or minus septic arthriti s. Mild temperature elevation but no true criteria for sepsis. Immune compromise secondary to diabetes. Her white count slightly elevated. X-ray shows hardware intact. Discussed with Dr. Fontana at [facility] who strongly recommended I do not give antibiotics and that she be excepted for possible arthrocentesis at outside facility. She is clinically stable so I do not believe that urgent antibiotics are not indicated at this time. - Vital Signs Vital signs: Temp Pulse Resp BP Pulse Ox 99.3 F 102 H 18 141/81 H 96 04/19/19 20:50 04/19/19 20:50 04/19/19 20:50 04/19/19 20:50 04/19/19 20:50 - Laboratory Result Diagrams: 04/19/19 21:30 04/19/19 21:30 Laboratory results interpreted by me: 04/19/19 04/19/19 21:30 21:30 WBC 10.9 H RDW 14.5 H Creatinine 0.50 L Glucose 135 H Discharge - Discharge Clinical Impression: Postoperative infection of knee Condition: Fair Disposition: [facility] Referrals: TATI JEONG MD [Primary Care Provider] - Follow up as needed
--- NOTE | 2019-04-19 23:13 | RADIOLOGY REPORT (SQ) ---
EXAM DESCRIPTION: Left knee RadLex: XR KNEE 4 OR MORE VIEWS Views: 4 CLINICAL HISTORY: 58 years Female, post op knee COMPARISON: None. FINDINGS: Arthroplasty has been performed. There is no loosening of the prosthetic components. Alignment is anatomic. There is a moderate joint effusion. No lytic bone changes. IMPRESSION: 1. Status post knee arthroplasty. Anatomic alignment. Joint effusion.
[2019-04-20] MEDS ORDERED: HYDROMORPHONE HCL INJ/PF 2 MG/ML AMPULE IV ONE (00:43)
[2019-04-20 01:45] VITALS: BP 150/70
--- NOTE | 2019-04-20 01:56 | ER Document Report ---
Doctor's Note Notes: 04/20/19 01:56 Patient with possible cutaneous knee infection versus early septic knee, transferred by Dr. Wilburn to [facility]. I evaluated her just immediately prior to transfer, she remains stable with no new complaint.
== END 2019-04-20 02:05 | disposition short-term general hospital (02) ==
LOC: ER 20:35
DX: T81.40XA Infection following a procedure, unspecified, initial encounter (principal); M00.9 Pyogenic arthritis, unspecified; Y83.8 Other surgical procedures as the cause of abnormal reaction of the patient, or of later complication, without mention of misadventure at the time of the procedure; D72.829 Elevated white blood cell count, unspecified; Z96.652 Presence of left artificial knee joint; E11.9 Type 2 diabetes mellitus without complications; I10 Essential (primary) hypertension; J45.909 Unspecified asthma, uncomplicated; Z88.8 Allergy status to other drugs, medicaments and biological substances; Z88.2 Allergy status to sulfonamides
CPT/HCPCS: 96376; 99284; 96374; 36415; 87040; 85025; 80053; 83605; 73564; J1170 ×2

== ENCOUNTER 2020-02-19 11:52 | Emergency (ER) | payer OTHER ==
[2020-02-19] MEDS ORDERED: METHOCARBAMOL 750 MG TABLET PO ONE (13:22)
--- NOTE | 2020-02-19 13:27 | ER Document Report ---
ED General - General Chief Complaint: Back Pain Stated Complaint: NECK,SHOULDER PAIN,SORE THROAT Primary Care Provider: TATI JEONG MD [Primary Care Provider] - Follow up as needed Notes: Patient is a 59-year-old -[place] female with a history of diabetes, hypertension, degenerative disc disease in the cervical spine, status post left total knee who has been told in the past she had a "heart valve problem" who presents to the emergency department with a chief complaint of muscle spasms. She states for about a week and a half now she has had what feel like intermittent spasms in the chest, bilateral trapezius, neck and left thigh. Patient states that this has happened before and her primary doctor used to give her tramadol for these episodes. She states that she stopped taking the tramadol because it was giving her headaches and an upset stomach. She denies any specific provocative or palliative factors. She states that the spasms are sometimes so severe around the chest wall that it makes her feel a sensation of shortness of breath. She states that she has been evaluated in the past by cardiology which is how she found out about the heart valve issue, had a normal stress test and was told she did not require any stenting or intervention. She denies any fall, injury or trauma. No numbness, tingling or weakness. TRAVEL OUTSIDE OF THE [place] IN LAST 30 DAYS: No - Related Data Allergies/Adverse Reactions: nitroglycerin [Nitroglycerin] Allergy (Verified 03/08/19 15:13) low blood pressure Sulfa (Sulfonamide Antibiotics) Allergy (Verified 03/08/19 15:13) rash Past Medical History - General Information source: Patient - Social History Smoking Status: Former Smoker Frequency of alcohol use: Rare Family History: Arthritis, CAD, DM, Hyperlipidemia, Hypertension, Malignancy Patient has homicidal ideation: No - Past Medical History Cardiac Medical History: Reports: Hx Hypertension Pulmonary Medical History: Reports: Hx Asthma Endocrine Medical History: Reports: Hx Diabetes Mellitus Type 2 Renal/ Medical History: Denies: Hx Peritoneal Dialysis Musculoskeletal Medical History: Reports Hx Arthritis, Reports Hx Musculoskeletal Trauma Past Surgical History: Reports: Hx Cholecystectomy, Hx Gynecologic Surgery - tubes tied, Hx Orthopedic Surgery - right knee, Hx Tubal Ligation - Immunizations Hx Diphtheria, Pertussis, Tetanus Vaccination: Yes Review of Systems - Review of Systems Constitutional: denies: Fever EENT: denies: Throat pain Cardiovascular: Chest pain Respiratory: Short of breath Gastrointestinal: denies: Abdominal pain Genitourinary: denies: Pain Female Genitourinary: denies: Vaginal discharge Musculoskeletal: Muscle pain Skin: denies: Change in color Hematologic/Lymphatic: denies: Easy bruising Neurological/Psychological: denies: Seizure Physical Exam - Vital signs Vitals: Temp Pulse Resp BP Pulse Ox 98.6 F 79 17 121/62 98 02/19/20 12:28 02/19/20 12:28 02/19/20 12:28 02/19/20 12:28 02/19/20 12:28 - General General appearance: Appears well, Alert In distress: None - HEENT Head: Normocephalic, Atraumatic Eyes: Normal Pupils: PERRL Mucous membranes: Moist - Respiratory Respiratory status: No respiratory distress Chest status: Nontender Breath sounds: Normal Chest palpation: Normal - Cardiovascular Rhythm: Regular Heart sounds: Normal auscultation - Back Back: Other - Diffuse tenderness to palpation bilateral trapezius and neck posteriorly. No deformity step-off or crepitus. - Extremities General upper extremity: Normal inspection, Nontender, Normal color, Normal ROM, Normal temperature General lower extremity: Other - Patient grimaces with palpation of the left anterior thigh. 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 Normal axis, normal intervals. No STEMI. No significant change from prior EKG. Interpreted by myself in conjunction with the ED attending. 02/19/20 15:20 Patient with a low ionized calcium. Electrolytes otherwise within normal limits. No other acute process on imaging or laboratory studies. Suspect this in relation to chronic underlying respiratory alkalosis given the patient's history of diabetes. [place] that this is what is causing the cramps. Patient states she does not like to eat a lot of dietary calcium-containing foods as she does not care for them. She requests calcium supplementation. Will prescribe 500 mg p.o. twice daily to be taken with food. She will follow-up with her doctor for repeat laboratory studies and reevaluation within a few days. Advise she return here or any ER immediately with any new, persistent or worsening symptoms. She verbalized understood and agreed. - Vital Signs Vital signs: Temp Pulse Resp BP Pulse Ox 98.6 F 79 17 121/62 98 02/19/20 12:28 02/19/20 12:28 02/19/20 12:28 02/19/20 12:28 02/19/20 12:28 - Laboratory Result Diagrams: 02/19/20 13:35 02/19/20 13:35 Laboratory results interpreted by me: 02/19/20 02/19/20 02/19/20 13:05 13:35 14:10 Glucose 259 H Ionized Calcium Tim 1.12 L Urine Glucose (UA) >=500 H Urine Blood MODERATE H Ur Leukocyte Esterase TRACE H Discharge - Discharge Clinical Impression: Hypocalcemia, Muscle cramps Condition: Stable Disposition: HOME, SELF-CARE Instructions: Myalagia (Muscle Pain) ([facility]) Additional Instructions: Follow-up with your regular doctor in 2 to 3 days for reevaluation. Return here or any ER immediately with any new, persistent or worsening symptoms. Prescriptions: Calcium Carbonate [Calcium] 500 mg PO BID #60 tablet Methocarbamol [Robaxin 500 mg Tablet] 500 mg PO QID #30 tablet Referrals: TATI JEONG MD [Primary Care Provider] - Follow up as needed
[2020-02-19 13:41] LABS: APPEARANCE,URINE CLEAR; BILIRUBIN,URINE NEGATIVE (NEGATIVE); COLOR,URINE YELLOW; GLUCOSE, URINE >=500 mg/dL (NEGATIVE); KETONES,URINE NEGATIVE (NEGATIVE); LEUKOCYTE ESTERASE,URINE TRACE (NEGATIVE); NITRITE,URINE NEGATIVE (NEGATIVE); PROTEIN,URINE NEGATIVE (NEGATIVE); URINE SPECIFIC GRAVITY 1.032; UROBILINOGEN,URINE NEGATIVE mg/dL (<2.0)
--- NOTE | 2020-02-19 13:51 | RADIOLOGY REPORT (SQ) ---
EXAM DESCRIPTION: CHEST SINGLE VIEW IMAGES COMPLETED DATE/TIME: 02/19/2020 1:38 pm REASON FOR STUDY: pain COMPARISON: 05/27/2013 EXAM PARAMETERS: NUMBER OF VIEWS: One view. TECHNIQUE: Single frontal radiographic view of the chest acquired. RADIATION DOSE: NA LIMITATIONS: None. FINDINGS: LUNGS AND PLEURA: No opacities, masses or pneumothorax. No pleural effusion. MEDIASTINUM AND HILAR STRUCTURES: No masses. Contour normal. HEART AND VASCULAR STRUCTURES: Heart normal in size. Normal vasculature. BONES: No acute findings. HARDWARE: None in the chest. OTHER: No other significant finding. IMPRESSION: NO ACUTE RADIOGRAPHIC FINDING IN THE CHEST. TECHNICAL DOCUMENTATION: JOB ID: [id number] 2010 [employer]- All Rights Reserved Reading location - IP/workstation name: [email or web address]
[2020-02-19 14:00] LABS: ABSOLUTE EOSINOPHILS # (AUTO) 0.1 10^3/uL (0.0-0.6); ABSOLUTE MONOCYTES (AUTO) 0.5 10^3/uL (0.1-1.4); BASOPHILS % (AUTO) 0.7 % (0-2); EOSINOPHILS % (AUTO) 1.9 % (0-6); HEMATOCRIT 41.7 % (36.0-47.0); HEMOGLOBIN 13.7 g/dL (12.0-15.5); LYMPHOCYTES % (AUTO) 29.7 % (13-45); MEAN CORPUSCULAR HEMOGLOBIN 27.5 pg (27.0-33.4); MEAN CORPUSCULAR HGB CONC 32.9 g/dL (32.0-36.0); MEAN CORPUSCULAR VOLUME 83 fl (80-97); MONOCYTES % (AUTO) 7.4 % (3-13); PLATELET COUNT 285 10^3/uL (150-450); RED CELL DISTRIBUTION WIDTH 13.8 % (11.5-14.0); SEGMENTED NEUTROPHILS % (AUTO) 60.3 % (42-78); TOTAL CELLS COUNTED % (AUTO) 100 %; WHITE BLOOD COUNT 6.6 10^3/uL (4.0-10.5)
[2020-02-19 14:06] LABS: INTERNATIONAL RATION (INR) 0.96
[2020-02-19 14:19] LABS: ALBUMIN 4.2 g/dL (3.5-5.0); ALKALINE PHOSPHATASE 65 U/L (38-126); ANION GAP 6 (5-19); ASPARTATE AMINO TRANSFERASE 19 U/L (14-36); BILIRUBIN,DIRECT 0.3 mg/dL (0.0-0.4); BILIRUBIN,TOTAL 0.6 mg/dL (0.2-1.3); BLOOD UREA NITROGEN 8 mg/dL (7-20); CALCIUM 9.2 mg/dL (8.4-10.2); CARBON DIOXIDE 29 mmol/L (22-30); CHLORIDE 104 mmol/L (98-107); CREATINE KINASE 66 U/L (30-135); GLUCOSE 259 mg/dL (75-110); PHOSPHORUS 3.1 mg/dL (2.5-4.5); POTASSIUM 4.4 mmol/L (3.6-5.0); TOTAL PROTEIN 7.2 g/dL (6.3-8.2)
[2020-02-19 14:29] LABS: NT PRO BNP 125 pg/mL (<125)
[2020-02-19 14:42] LABS: TROPONIN I < 0.012 ng/mL
[2020-02-19 15:44] VITALS: BP 136/64
--- NOTE | 2020-02-19 22:00 | EKG REPORT ---
SEVERITY:- NORMAL ECG - SINUS RHYTHM : Confirmed by: Hanna Bonilla MD 19-Feb-2020 21:59:03
== END 2020-02-19 15:44 | disposition home or self-care (01) ==
LOC: ER 11:52
DX: E83.51 Hypocalcemia (principal); R25.2 Cramp and spasm; R07.9 Chest pain, unspecified; M79.10 Myalgia, unspecified site; E11.9 Type 2 diabetes mellitus without complications; I10 Essential (primary) hypertension; J45.909 Unspecified asthma, uncomplicated; R06.02 Shortness of breath; Z88.8 Allergy status to other drugs, medicaments and biological substances; Z88.2 Allergy status to sulfonamides
CPT/HCPCS: 93005; 99283; 36415; 87086; 82550; 83735; 84100; 85025; 85610; 85730; 80053; 81001; 84484; 82330; 83880; 71045; 93010; J3490

== ENCOUNTER → 2020-04-21 | Outpatient (CLI) | payer OTHER ==
--- NOTE | 2020-04-21 15:12 | WOMENS IMAGING REPORT ---
EXAM DESCRIPTION: 3D SCREENING MAMMO BILAT IMAGES COMPLETED DATE/TIME: 04/21/2020 2:53 pm REASON FOR STUDY: Z12.31 ENCNTR SCREEN MAMMOGRAM FOR MALIGNANT NEOPLASM OF BREAST Z12.31 ENCNTR SCR EEN MAMMOGRAM FOR MALIGNANT NEOPLASM OF [place] COMPARISON: MULTIPLE SINCE 2009 EXAM PARAMETERS: Views: Standard craniocaudal and mediolateral oblique views of each breast recorded using digital acquisition and breast tomosynthesis. Read with the assistance of CAD. .[facility] - [facility] Version 9.2 LIMITATIONS: None. FINDINGS: No suspicious masses, suspicious calcifications or architectural distortion. No areas of c oncern. IMPRESSION: NEGATIVE MAMMOGRAM. BIRADS 1. BREAST DENSITY: b. There are scattered areas of fibroglandular density. BIRAD: ASSESSMENT: 1 NEGATIVE RECOMMENDATION: ROUTINE SCREENING Please continue yearly bilateral screening mammography/tomosynthesis in March 2021 COMMENT: The patient has been notified of the results by letter per MQSA requirements. Additional no tification policies are in place for contacting patient with suspicious or incomplete findings. Quality ID #[id number]: The [employer] recommends an annual screening mammogram for women aged 40 years or over. This facility utilizes a reminder system to ensure that all patients receive reminder letters, and/or direct phone calls for appointments. This includes reminders for routine scr eening mammograms, diagnostic mammograms, or other Breast Imaging Interventions when appropriate. Th is patient will be placed in the appropriate reminder system. TECHNICAL DOCUMENTATION: FINDING NUMBER: (1) ASSESSMENT: (1) JOB ID: [id number] 2010 [employer]- All Rights Reserved Reading location - IP/workstation name: [email or web address]
== END ==
LOC: WI 14:32
PROVIDERS: ATTEND Internal Medicine
DX: Z12.31 Encounter for screening mammogram for malignant neoplasm of breast (principal)
CPT/HCPCS: 77063; 77067